=== PATIENT | female | born 2005 | race Hispanic/Latino ===

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

== ENCOUNTER 2024-08-15 11:05 | Inpatient (IN) | payer OTHER ==
[~2024-08-15] VITALS: Ht 165.1 cm; Wt 90.0 kg
[~2024-08-15 11:05] MED LIST changes: +ABIL1TAB13 PO; +METF500T13 PO; +OLAN5ZYD PO; +PANT40TA29 PO; +TRUL0.5I SQ
[2024-08-15] MEDS ORDERED: SUMA50TA2 PO (12:17)
[2024-08-15] MEDS ORDERED: HOME MED LIST COMPLETE! XX SCH (12:20)
[2024-08-15] MEDS ORDERED: IBUPROFEN 400MG TAB PO PRN (13:00)
[2024-08-15] MEDS ORDERED: MAALOX 30 ML SUSP *UDC PO PRN (13:00)
[2024-08-15] MEDS ORDERED: diphenhydrAMINE 25MG CAP PO PRN (13:00)
[2024-08-15] MEDS ORDERED: MOM 30ML SUSPENSION UDC PO PRN (13:00)
[2024-08-15] MEDS ORDERED: traZODone 50 MG TAB PO PRN (13:00)
[2024-08-15 15:32] VITALS: BP 141/87; TEMP 98.7; O2SAT 100
[2024-08-16 06:16] VITALS: BP 139/76; TEMP 97.9; O2SAT 98
[2024-08-16 14:44] VITALS: BP 135/74; TEMP 98.5; O2SAT 98
[2024-08-16] MEDS: SUMAtriptan SUCCINATE 25 MG TAB PO PRN (18:25)
[2024-08-17 06:21] VITALS: BP 132/66; TEMP 98.2; O2SAT 99
[2024-08-17 16:19] VITALS: BP 126/75; TEMP 99.2; O2SAT 99
[2024-08-18 06:34] VITALS: BP 134/71; TEMP 97.5; O2SAT 100
[2024-08-18] MEDS: ACETAMINOPHEN 325 MG TAB PO PRN (13:23)
[2024-08-18 18:37] VITALS: BP 118/76; TEMP 98.2; O2SAT 99
[2024-08-19 06:24] VITALS: BP 123/73; TEMP 98; O2SAT 96
[2024-08-19] MEDS ORDERED: HYDR-3363 PO (10:35)
== END 2024-08-19 12:24 | disposition home or self-care (01) | DRG 882 ==
LOC: M ED 11:05 → M ED INP 12:59 → M PSY 15:31
PROVIDERS: ADMIT Psychiatry & Neurology Psychiatry; ATTEND Psychiatry & Neurology Psychiatry
DX: F43.20 Adjustment disorder, unspecified (principal); F41.1 Generalized anxiety disorder; Z91.51 Personal history of suicidal behavior